=== PATIENT | female | born 1970 | race Hispanic/Latino ===

== ENCOUNTER 2022-02-13 21:07 | Emergency (ER) | payer MEDICAID, SELFPAY ==
[2022-02-13] MEDS ORDERED: Lidocaine 1% (PF) 30 ML VIAL ONE (21:35)
[2022-02-13] MEDS ORDERED: Ibuprofen 800 MG TAB ONE (21:37)
[2022-02-13] MEDS ORDERED: Bacitracin 1 PK ONE (22:18)
== END 2022-02-13 22:42 | disposition home or self-care (01) ==
LOC: NAV ERS 21:07
DX: S61.215A Laceration without foreign body of left ring finger without damage to nail, initial encounter (principal); S71.112A Laceration without foreign body, left thigh, initial encounter; S81.011A Laceration without foreign body, right knee, initial encounter; S00.03XA Contusion of scalp, initial encounter; W25.XXXA Contact with sharp glass, initial encounter
CPT/HCPCS: 12002; J2001